=== PATIENT | female | born 1965 | race Caucasian/White ===

== ENCOUNTER 2021-10-23 23:43 | Inpatient (IN) | payer BC, SELFPAY ==
--- NOTE | ~2021-10-23 | XR_ITS ---
EXAMINATION: XR chest 1V portable DATE: 10/26/2021 07:32 INDICATION: Hypoxia. COVID-19 positive on 10/15/2021. TECHNIQUE: A single frontal view of the chest was obtained. COMPARISON: None. FINDINGS: There are patchy airspace opacities in all lung zones bilaterally. No pleural effusion or p neumothorax. The heart size is normal. IMPRESSION: 1. Diffuse lung disease, consistent with COVID-19 pneumonia. Reviewed, dictated and finalized at location [facility] [employer]
[2021-10-24] VITALS (11 sets, daily range): BP systolic 109–145; BP diastolic 61–76; PULSE 62–82; RESP 16–22; TEMP 36.1–36.8; O2SAT 91–98; BMI 38.6
--- NOTE | 2021-10-24 00:18 | PM.IMHP ---
H&P: HPI History of Present Illness Date/Time: 10/24/21 00:18 Chief Complaint: Dyspnea Narrative: 56-year-old woman with a history of seizures and hypothyroidism transferred from [facility] emergency department in [place] with dyspnea, fatigue, and weakness. She has had headache, body aches, ageusia, poor appetite and a cough as well. Her symptoms began on October 12 and she was tested on October 15 and found to be positive. Her symptoms got worse over last few days prompting her to go to the emergency department. She denies history of diabetes, heart or lung disease, fever, vomiting, diarrhea, and chest pain. Her 36-year-old daughter recently moved home and was also positive for COVID. She has not had the COVID vaccine. Patient states she has been having small seizures today. Review of Systems Review of Systems: All systems reviewed & are unremarkable except as noted in HPI and below Constitutional: Constitutional: Reports anorexia, Reports body ache(s), Reports fatigue, Reports headache(s), Reports lethargy and Reports weakness Eyes: Eyes: Denies change in vision, Denies diplopia, Denies loss of vision and Reports requires corrective lenses ENT: Denies otalgia, Denies facial pain, Denies nasal discharge and Denies sore throat Cardiovascular: Cardiovascular: Denies chest pain, Denies syncope and Denies leg edema Respiratory: Respiratory: Reports cough, Denies hemoptysis, Reports pain with cough and Reports dyspnea Gastrointestinal: Gastrointestinal: Reports abdominal pain, Denies melena, Denies hematochezia, Denies nausea and Denies vomiting Genitourinary: Genitourinary: Denies hematuria, Denies nocturia and Denies dysuria Musculoskeletal: Musculoskeletal: Reports myalgias, Denies arthralgias and Denies joint swelling Integumentary/Breasts: Skin/Breast: Denies pruritus, Denies erythema and Denies rash Neurologic: Denies abnormal gait, Denies dizziness, Denies syncope and Reports convulsions Psychiatric: Psychiatric: Reports change in appetite Hematologic/Lymphatic: Hematologic/Lymphatic: Denies easy bleeding and Denies easy bruising Allergic/Immunologic: Allergic/Immunologic: Denies urticaria, Denies throat swelling and Denies tongue swelling PMFSH Past Medical History Medical History (Updated 10/24/21 @ 01:10 by Salvador Waite MD) Epilepsy GERD (gastroesophageal reflux disease) Hypothyroidism Surgical History Surgical History (Updated 10/24/21 @ 00:32 by Salvador Waite MD) Status post cholecystectomy Status post right foot surgery Social History Social History (Updated 10/24/21 @ 00:33 by Salvador Waite MD) Smoking status: Never smoker Second hand tobacco smoke exposure: No Alcohol intake: never Substance use: never Living arrangements: with family Additional occupation/education comments: Works at a [employer] store. Spiritual care concerns: No Meds Home Medications and Allergies Allergies Allergy/AdvReac Type Severity Reaction Status Date / Time No Known Allergies Allergy Verified 10/24/21 01:10 Vital Signs Vital Signs - 24 hr 10/24/21 00:14 Temperature 36.2 C L Pulse Rate 69 Respiratory Rate 22 H Blood Pressure 145/70 H Pulse Oximetry 95 Exam Const: General: cooperative, well developed, alert, awake, Physically active, acute distress mild, anxious, ill appearing acutely ( Mildly) and well groomed Nutritional Appearance: overweight Orientation/consciousness: patient oriented x3 Limitations: no limitations HENMT: Head: normal to inspection, normocephalic and atraumatic Mouth: Yes dry mucous membranes ( no lesions) Throat: posterior oropharynx normal Eyes: General: appearance normal, both eyes and all related structures Eyelids: eyelids normal Conjunctivae: conjunctivae normal Cornea: corneas normal Pupils: Equal, round and reactive pupils present EOM: EOMs intact bilaterally Neck: Neck: normal visual inspection, full ROM
--- NOTE | 2021-10-24 00:31 | PC.NURSE ---
Bennie admitted to room 210 from [facility] per ambulance at 2330. Is alert and oriented times 4 with no c/o pain.
[2021-10-24] MEDS: SODIUM CHLORIDE 0.9% IV 1,000 ML 100 ML IV CONT ×4 (01:13→23:47)
[2021-10-24] MEDS: ONDANSETRON INJ 4 MG/2 ML VIAL IV PUSH ×3 (01:19→18:31)
[2021-10-24 05:26] LABS: Basophils Absolute Auto 0.01 K/mm3 (0.00-0.10); Basophils Percent Auto 0.2 % (0.0-1.0); Eosinophils Absolute Auto 0.01 K/mm3 (0.02-0.50); Eosinophils Percent Auto 0.2 % (1.0-6.0); Hematocrit 33.3 % (35.0-49.0); Hemoglobin 11.2 g/dL (12.0-15.0); Immature Granulocyte Absolute 0.02 K/mm3 (0.00-0.00); Immature Granulocyte Percent A 0.4 % (0.0-0.0); Lymphocytes Absolute Auto 0.89 K/mm3 (1.10-4.50); Lymphocytes Percent Auto 18.6 % (18.0-42.0); Mean Corpuscular HGB Conc 33.6 g/dL (32.0-36.0); Mean Corpuscular Hemoglobin 30.7 pg (27.0-31.0); Mean Corpuscular Volume 91.2 fL (78.0-102.0); Mean Platelet Volume 9.1 fl (9.2-11.8); Monocytes Absolute Auto 0.52 K/mm3 (0.10-0.90); Monocytes Percent Auto 10.9 % (2.0-11.0); Neutrophils Absolute Auto 3.3 K/mm3 (1.7-7.2); Neutrophils Percent Auto 69.7 % (50.0-70.0); Platelet Count Result 173 K/mm3 (150-420); Red Blood Count 3.65 M/mm3 (4.20-5.40); Red Cell Distribution Width 12.5 % (11.6-14.4); White Blood Count 4.8 K/mm3 (4.8-10.8)
[2021-10-24] MEDS: ACETAMINOPHEN 500 MG TABLET 1000 MG PO (05:30)
[2021-10-24 05:45] LABS: INR 1.1; Prothrombin Time 11.8 Seconds (9.50-12.10)
[2021-10-24 05:46] LABS: Alanine Aminotransferase 43 U/L (14-59); Albumin Level 2.5 g/dL (3.4-5.0); Alkaline Phosphatase 118 U/L (46-116); Anion Gap 9 mmol/L (8-16); Aspartate Amino Transferase 40 U/L (15-37); Bilirubin,Total 0.2 mg/dL (0.00-1.00); Blood Urea Nitrogen 8 mg/dL (7-18); Calcium 7.7 mg/dL (8.5-10.1); Carbon Dioxide 29 mmol/L (21-32); Chloride 105 mmol/L (98-108); Estimated CRCL calculation 88 ml/min; Estimated Glomerular Filt Rate > 60; Glucose 99 mg/dL (70-99); Magnesium 1.9 mg/dL (1.8-2.4); Osmolality Calculated 294 mOsm/kg (285-295); Potassium 3.7 mmol/L (3.5-5.1); Sodium 143 mmol/L (136-145); Total Protein 6.3 g/dL (6.4-8.2); Troponin I 5.3 ng/L (0.00-60.4)
--- NOTE | 2021-10-24 08:07 | PM.IMHP ---
H&P: HPI History of Present Illness Date/Time: 10/24/21 08:07 this is a Covid positive patient had arrived to emergency room from outside hospital. Patient has a past medical history of hypothyroidism and seizure. Patient is whiny and difficult to get any answers out of her. Patient notes that she takes her seizure medications at 515 when she did not see them at the correct time I explained to patient that she is now in the hospital her medications are being employed so that she can receive them. All medications obtained from medical records. According to notes this is a 56-year-old female that started to experience Covid symptoms on the 10/12/2021 and tested positive on 10/15/2021. At that time she was placed on inhalers and steroid. Patient has not been vaccinated for Covid or flu. Patient was started on remdesivir and dexamethasone at the outside hospital. Patient tested negative for PE indicated groundglass opacites. 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 Spiritual care concerns: No Meds Home Medications and Allergies Home Medications Medication Instructions Recorded Confirmed Type cyclobenzaprine 10 mg PO TID PRN 10/24/21 10/24/21 History diclofenac sodium [Voltaren] 75 mg PO BID 10/24/21 10/24/21 History gabapentin 300 mg PO HS 10/24/21 10/24/21 History levetiracetam [Keppra] 1,000 mg PO BID 10/24/21 10/24/21 History levothyroxine [Euthyrox] 137 mcg PO DAILY 10/24/21 10/24/21 History magnesium oxide 400 mg PO DAILY 10/24/21 10/24/21 History phenytoin sodium extended 200 mg PO BID 10/24/21 10/24/21 History [Dilantin Extended] tramadol 50 mg PO Q6H PRN 10/24/21 10/24/21 History tramadol-acetaminophen 10/24/21 History Allergies Allergy/AdvReac Type Severity Reaction Status Date / Time No Known Allergies Allergy Verified 10/24/21 01:10 Vital Signs Vital Signs - 24 hr 10/24/21 00:13 10/24/21 00:14 10/24/21 03:35 Temperature 97.1 F L 96.9 F L Pulse Rate 69 69 68 Respiratory Rate 20 22 H 20 Blood Pressure 145/70 H 124/70 Pulse Oximetry 95 95 97 H&P: Results Labs Labs: Short CBC 10/24/21 Range/Units 05:07 WBC 4.8 (4.8-10.8) K/mm3 Hgb 11.2 L (12.0-15.0) g/dL Hct 33.3 L (35.0-49.0) % Plt Count 173 (150-420) K/mm3 [facility] 10/24/21 05:07 Sodium 143 Potassium 3.7 Chloride 105 Carbon Dioxide 29 BUN 8 Creatinine 0.70 Glucose 99 Calcium 7.7 L Cardiac Enzymes 10/24/21 Range/Units 05:07 Troponin I 5.3 (0.00-60.4) ng/L Liver Function 10/24/21 Range/Units 05:07 Total Bilirubin 0.2 (0.00-1.00) mg/dL AST 40 H (15-37) U/L ALT 43 (14-59) U/L Alkaline Phosphatase 118 H (46-116) U/L Albumin 2.5 L (3.4-5.0) g/dL
--- NOTE | 2021-10-24 08:15 | WPDPN ---
Progress Note: A&P Assessment and Plan (1) Respiratory failure with hypoxia: Code(s): J96.91 - Respiratory failure, unspecified with hypoxia Status: Acute Assessment and Plan: 2.5-3 L/M by nasal cannula required at present. Minimal increased work breathing. Candidate for antiviral and anti-inflammatory therapy. Started remdesivir along with dexamethasone, Tessalon Perles guaifenesin and inhaler (2) Pneumonia due to COVID-19 virus: Code(s): U07.1 - COVID-19; J12.82 - Pneumonia due to coronavirus disease 2018 Status: Acute Assessment and Plan: Remdesivir and dexamethasone per protocol. Will monitor transaminases. Mild increase in AST likely due to AZUL. (3) Epilepsy: Code(s): G40.909 - Epilepsy, unspecified, not intractable, without status epilepticus Status: Acute Assessment and Plan: Continue current anti epileptics. (4) GERD (gastroesophageal reflux disease): Code(s): K21.9 - Gastro-esophageal reflux disease without esophagitis Status: Acute Assessment and Plan: Continue oral PPI. (5) Hypothyroidism: Code(s): E03.9 - Hypothyroidism, unspecified Status: Acute Assessment and Plan: Continue oral thyroxine. Subjective Date/time seen: 10/24/21 08:15this is a Covid positive patient had arrived to emergency room from outside hospital. Patient has a past medical history of hypothyroidism and seizure. Patient is whiny and difficult to get any answers out of her. Patient notes that she takes her seizure medications at 515 when she did not see them at the correct time I explained to patient that she is now in the hospital her medications are being employed so that she can receive them. All medications obtained from medical records. According to notes this is a 56-year-old female that started to experience Covid symptoms on the 10/12/2021 and tested positive on 10/15/2021. At that time she was placed on inhalers and steroid. Patient has not been vaccinated for Covid or flu. Patient was started on remdesivir and dexamethasone at the outside hospital. Patient imaging negative for PE indicated groundglass opacites consistent with Covid. Patient was diagnosed with respiratory failure secondary to Covid. EKG from the outside hospital sinus rhythm with a heart rate of 69, phenytoin 22.3, WBC 6.6, hemoglobin 11.8, hematocrit 37.3, platelets 208, lactic acid 1.0, glucose 138, sodium 144, potassium 4.4, BUN 7, creatinine 0.8, AST 47, ALT 48, D-dimer 1527. Review of Systems Review of Systems: ROS unobtainable: Yes unobtainable due to medical condition Exam Narrative: GENERAL: Whiny difficult to get answers from, in no apparent distress. HEAD: normocephalic, atraumatic. EYES: PERRL. Sclera clear/white. Vision is grossly intact. EARS: External ears normal, auditory canals clear and without drainage, TMs normal without perforation. Hearing grossly intact. NOSE: External nose normal with no obvious nasal discharge, nares without redness, no rhinorrhea. THROAT: Mucous membranes moist, posterior pharynx clear. NECK: Neck supple, non-tender without lymphadenopathy, masses or thyromegaly. CARDIOVASCULAR: Regular rate and rhythm without murmurs, gallops, or rubs. RESPIRATORY: Clear to auscultation. Breath sounds equal bilaterally. No wheezes, rales, or rhonchi. GASTROINTESTINAL: Abdomen soft, non-tender, nondistended. Bowel sounds are active. No hepato-splenomegaly, or palpable masses. No guarding. SKIN: warm, intact with no suspicious lesions or rash, good texture and turgor. NEURO: awake, alert, EXTREMITIES: Normal range of motion. No edema. No calf tenderness. Negative Homans sign bilaterally. BACK: Nontender without deformity or crepitance. No flank tenderness. Objective Data Vital Signs Vital Signs: Vital Signs - 24 hr 10/24/21 00:13 10/24/21 00:14 10/24/21 03:35 Temperature 97.1 F L 96.9 F L Pulse Rate 69 69 68 Respiratory Rate 20 22 H 20 Bl
[2021-10-24] MEDS: PANTOPRAZOLE SODIUM IV 40 MG VIAL IV PUSH (09:48)
[2021-10-24] MEDS: PHENYTOIN SODIUM 100 MG EXTENDED RELEASE CAP 200 MG PO ×2 (09:48→16:56)
[2021-10-24] MEDS: levETIRAcetam 500 MG TABLET 1000 MG PO ×2 (09:48→16:57)
[2021-10-24] MEDS: MAGNESIUM OXIDE 400 MG TABLET PO (09:48)
[2021-10-24] MEDS: BENZONATATE 100 MG CAPSULE 200 MG PO ×3 (09:49→16:57)
[2021-10-24] MEDS: LEVOTHYROXINE SODIUM 112 MCG, LEVOTHYROXINE SODIUM 25 MCG 137 MCG PO (09:49)
[2021-10-24] MEDS: DICLOFENAC SOD 75 MG TABLET.EC PO ×2 (09:50→16:56)
[2021-10-24] MEDS: DEXAMETHASONE SOD PHOS INJ 4 MG/ML VIAL 6 MG IV PUSH (09:50)
[2021-10-24] MEDS: guaiFENesin 12 HR 600 MG TABCR 1200 MG PO ×2 (09:50→20:59)
[2021-10-24] MEDS: ENOXAPARIN 30 MG/0.3 ML SYRINGE SUB-Q ×2 (09:52→20:58)
[2021-10-24] MEDS: ALBUTEROL SULFATE (*SP) INHALER 2 PUFF INHALATION ×3 (10:35→19:58)
[2021-10-24] MEDS: REMDESIVIR 100 MG/NS 250 ML 100 MG/250 ML BAG 250 MG IVPB (12:35)
--- NOTE | 2021-10-24 13:50 | PC.NURSE ---
IV fluids were delayed do to IV site clotting. 3 attempts made to start IV' site is RW 22G Remdisavir given 1st then NS started.
[2021-10-24] MEDS: ACETAMINOPHEN 325 MG TABLET 650 MG PO (16:57)
[2021-10-24] MEDS: BUDESONIDE/FORMOTEROL (*SP) 160-4.5 MCG 6 GM INH 2 PUFF INHALATION (18:30)
[2021-10-24] MEDS: GABAPENTIN 300 MG CAPSULE PO (20:59)
[2021-10-25] VITALS (7 sets, daily range): BP systolic 98–123; BP diastolic 55–66; PULSE 62–88; RESP 14–20; TEMP 36–36.8; O2SAT 95–98
--- NOTE | 2021-10-25 00:05 | PC.NURSE ---
Patient's SpO2 @ 95% on O2 @ 0.5 lpm. O2 turned off. Patient instructed to call nurse if feels SOB or like she needs the O2 back on. Call light in reach.
--- NOTE | 2021-10-25 01:20 | PC.NURSE ---
Patient resting in bed, complaining of coughing a lot and saying the coughing is hurting her upper stomach, lower rib cage area. Patient requesting something for the cough and some Tylenol for the pain. Charge nurse notified. Patient's SpO2 is @ 91% on room air. Call light in reach.
--- NOTE | 2021-10-25 01:23 | PC.NURSE ---
Dr. Torres notified of pt's c/o chronic coughing; New orders received and noted.
[2021-10-25] MEDS: ACETAMINOPHEN 325 MG TABLET 650 MG PO (01:38)
[2021-10-25] MEDS: BENZONATATE 100 MG CAPSULE 200 MG PO ×4 (01:39→17:14)
--- NOTE | 2021-10-25 01:54 | PC.NURSE ---
Patient ambulated to/from bathroom with SBA with steady gait. Patient SOB when she got back to the bed. SpO2 88%. Patient instructed on pursed lip breathing. SpO2 only came up to 89%. O2 began again @ 0.5 lpm/nc. SpO2 increased to 93%. PRN Tylenol and Tesslon Perles given as requested. Patient sitting on side of bed with call light in reach.
[2021-10-25] MEDS: BUDESONIDE/FORMOTEROL (*SP) 160-4.5 MCG 6 GM INH 2 PUFF INHALATION ×2 (05:29→17:15)
[2021-10-25] MEDS: LEVOTHYROXINE SODIUM 112 MCG, LEVOTHYROXINE SODIUM 25 MCG 137 MCG PO (05:30)
[2021-10-25] MEDS: ALBUTEROL SULFATE (*SP) INHALER 2 PUFF INHALATION ×4 (05:30→20:19)
[2021-10-25 06:00] LABS: Alanine Aminotransferase 46 U/L (14-59); Estimated CRCL calculation 82 ml/min; Estimated Glomerular Filt Rate > 60; INR 1.2; Prothrombin Time 12.3 Seconds (9.50-12.10)
--- NOTE | 2021-10-25 06:53 | PC.NURSE ---
Patient called nurses to her room saying she's having a seizure. 2 nurses entered room to find patient lying on her bed. No seizure activity noted. NURY. Hand grasps and BLE strength equal. Patient talking the whole time. Patient says her head feels fuzzy and things sound funny and then her head pulls back. Patient's respirations rapid and shallow. Nurse educated patient on pursed lip breathing and respirations slowed. Patient continued to say she was having a seizure while no seizure activity noted. Dr Torres notified of all with new order received for Dilantin level.
[2021-10-25 07:04] LABS: Phenytoin Dilantin 17 ug/mL (10-20)
[2021-10-25] MEDS: ONDANSETRON INJ 4 MG/2 ML VIAL IV PUSH (07:54)
[2021-10-25] MEDS: guaiFENesin 12 HR 600 MG TABCR 1200 MG PO ×2 (08:45→20:20)
[2021-10-25] MEDS: DEXAMETHASONE SOD PHOS INJ 4 MG/ML VIAL 6 MG IV PUSH (08:45)
[2021-10-25] MEDS: PHENYTOIN SODIUM 100 MG EXTENDED RELEASE CAP 200 MG PO ×2 (08:46→17:14)
[2021-10-25] MEDS: MAGNESIUM OXIDE 400 MG TABLET PO (08:46)
[2021-10-25] MEDS: levETIRAcetam 500 MG TABLET 1000 MG PO ×2 (08:46→17:14)
[2021-10-25] MEDS: ENOXAPARIN 30 MG/0.3 ML SYRINGE SUB-Q ×2 (08:47→20:20)
[2021-10-25] MEDS: DICLOFENAC SOD 75 MG TABLET.EC PO ×2 (08:47→17:14)
[2021-10-25] MEDS: PANTOPRAZOLE SODIUM IV 40 MG VIAL IV PUSH (08:48)
[2021-10-25] MEDS: REMDESIVIR 100 MG/NS 250 ML 100 MG/250 ML BAG 250 MG IVPB (09:37)
[2021-10-25] MEDS: SODIUM CHLORIDE 0.9% IV 1,000 ML 100 ML IV CONT (11:13)
--- NOTE | 2021-10-25 11:36 | WPDPN ---
Progress Note: A&P Assessment and Plan (1) Respiratory failure with hypoxia: Code(s): J96.91 - Respiratory failure, unspecified with hypoxia <JENNIFER Castaneda - Last Filed: 10/25/21 11:42> Status: Acute <JENNIFER Castaneda - Last Filed: 10/25/21 11:42> Assessment and Plan: 2.5-3 L/M by nasal cannula required at present. Minimal increased work breathing. Candidate for antiviral and anti-inflammatory therapy. Started remdesivir along with dexamethasone, Tessalon Perles guaifenesin and inhaler Patient will have a home O2 evaluation and repeat chest x-ray on discharge tomorrow <JENNIFER Castaneda - Last Filed: 10/25/21 11:42> (2) Pneumonia due to COVID-19 virus: Code(s): U07.1 - COVID-19; J12.82 - Pneumonia due to coronavirus disease 2019 <JENNIFER Casatneda - Last Filed: 10/25/21 11:42> Status: Acute <JENNIFER Castaneda - Last Filed: 10/25/21 11:42> Assessment and Plan: Remdesivir and dexamethasone per protocol. Will monitor transaminases. Mild increase in AST likely due to AZUL. <JENNIFER Castaneda - Last Filed: 10/25/21 11:42> (3) Epilepsy: Code(s): G40.909 - Epilepsy, unspecified, not intractable, without status epilepticus <JENNIFER Castaneda - Last Filed: 10/25/21 11:42> Status: Acute <JENNIFER Castaneda - Last Filed: 10/25/21 11:42> Assessment and Plan: Continue current anti epileptics. phenytoin 17 <JENNIFER Castaneda - Last Filed: 10/25/21 11:42> (4) GERD (gastroesophageal reflux disease): Code(s): K21.9 - Gastro-esophageal reflux disease without esophagitis <JENNIFER Castaneda - Last Filed: 10/25/21 11:42> Status: Acute <JENNIFER Castaneda - Last Filed: 10/25/21 11:42> Assessment and Plan: Continue oral PPI. <JENNIFER Castaneda - Last Filed: 10/25/21 11:42> (5) Hypothyroidism: Code(s): E03.9 - Hypothyroidism, unspecified <JENNIFER Castaneda - Last Filed: 10/25/21 11:42> Status: Acute <JENNIFER Castaneda - Last Filed: 10/25/21 11:42> Assessment and Plan: Continue oral thyroxine. <JENNIFER Castaneda - Last Filed: 10/25/21 11:42> Subjective Date/time seen: 10/25/21 11:36 <JENNIFER Castaneda - Last Filed: 10/25/21 11:42> Review of Systems Review of Systems: ROS unobtainable: Yes unobtainable due to medical condition <JENNIFER Castaneda - Last Filed: 10/25/21 11:42> Exam Narrative: GENERAL: Whiny difficult to get answers from, in no apparent distress. HEAD: normocephalic, atraumatic. EYES: PERRL. Sclera clear/white. Vision is grossly intact. EARS: External ears normal, auditory canals clear and without drainage, TMs normal without perforation. Hearing grossly intact. NOSE: External nose normal with no obvious nasal discharge, nares without redness, no rhinorrhea. THROAT: Mucous membranes moist, posterior pharynx clear. NECK: Neck supple, non-tender without lymphadenopathy, masses or thyromegaly. CARDIOVASCULAR: Regular rate and rhythm without murmurs, gallops, or rubs. RESPIRATORY: Clear to auscultation. Breath sounds equal bilaterally. No wheezes, rales, or rhonchi. GASTROINTESTINAL: Abdomen soft, non-tender, nondistended. Bowel sounds are active. No hepato-splenomegaly, or palpable masses. No guarding. SKIN: warm, intact with no suspicious lesions or rash, good texture and turgor. NEURO: awake, alert, EXTREMITIES: Normal range of motion. No edema. No calf tenderness. Negative Homans sign bilaterally. BACK: Nontender without deformity or crepitance. No flank tenderness. <Ramesh Guido, [employer] - Last Filed: 10/25/21 11:42> Objective Data Vital Signs Vital Signs: Vital Signs - 24 hr 10/24/21 12:00 10/24/21 15:45 10/24/21 16:35 Temperature 98.2 F 97.7 F Pulse Rate 64 80 82 Respiratory Rate 16 18 Blood Pressure 1
[2021-10-25] MEDS: GABAPENTIN 300 MG CAPSULE PO (20:20)
[2021-10-26] VITALS (7 sets, daily range): BP systolic 109–126; BP diastolic 64–74; PULSE 65–102; RESP 18–20; TEMP 36.2–36.5; O2SAT 85–95
[2021-10-26] MEDS: ACETAMINOPHEN 325 MG TABLET 650 MG PO (04:14)
[2021-10-26] MEDS: LEVOTHYROXINE SODIUM 112 MCG, LEVOTHYROXINE SODIUM 25 MCG 137 MCG PO (05:37)
[2021-10-26] MEDS: traMADol HCL (*CRX) 25 MG TABLET PO (05:40)
[2021-10-26] MEDS: ALBUTEROL SULFATE (*SP) INHALER 2 PUFF INHALATION ×2 (05:43→09:59)
[2021-10-26] MEDS: BUDESONIDE/FORMOTEROL (*SP) 160-4.5 MCG 6 GM INH 2 PUFF INHALATION (05:43)
[2021-10-26 07:03] LABS: Hematocrit 32.3 % (35.0-49.0); Mean Corpuscular HGB Conc 34.1 g/dL (32.0-36.0); Mean Corpuscular Hemoglobin 31.4 pg (27.0-31.0); Mean Corpuscular Volume 92.3 fL (78.0-102.0); Mean Platelet Volume 9.6 fl (9.2-11.8); Platelet Count Result 129 K/mm3 (150-420); Red Cell Distribution Width 12.4 % (11.6-14.4); White Blood Count 7.1 K/mm3 (4.8-10.8)
[2021-10-26 07:24] LABS: INR 1.1; Prothrombin Time 11.8 Seconds (9.50-12.10)
[2021-10-26] MEDS: PHENYTOIN SODIUM 100 MG EXTENDED RELEASE CAP 200 MG PO (07:45)
[2021-10-26] MEDS: PANTOPRAZOLE SODIUM IV 40 MG VIAL IV PUSH (07:45)
[2021-10-26] MEDS: DEXAMETHASONE SOD PHOS INJ 4 MG/ML VIAL 6 MG IV PUSH (07:45)
[2021-10-26] MEDS: MAGNESIUM OXIDE 400 MG TABLET PO (07:45)
[2021-10-26] MEDS: guaiFENesin 12 HR 600 MG TABCR 1200 MG PO (07:46)
[2021-10-26] MEDS: DICLOFENAC SOD 75 MG TABLET.EC PO (07:46)
[2021-10-26] MEDS: levETIRAcetam 500 MG TABLET 1000 MG PO (07:46)
[2021-10-26] MEDS: ENOXAPARIN 30 MG/0.3 ML SYRINGE SUB-Q (07:47)
[2021-10-26] MEDS: BENZONATATE 100 MG CAPSULE 200 MG PO (07:47)
[2021-10-26 07:55] LABS: Alanine Aminotransferase 38 U/L (14-59); Albumin Level 2.6 g/dL (3.4-5.0); Alkaline Phosphatase 108 U/L (46-116); Anion Gap 9 mmol/L (8-16); Aspartate Amino Transferase 32 U/L (15-37); Bilirubin,Total 0.3 mg/dL (0.00-1.00); Blood Urea Nitrogen 6 mg/dL (7-18); Calcium 7.8 mg/dL (8.5-10.1); Carbon Dioxide 28 mmol/L (21-32); Chloride 107 mmol/L (98-108); Estimated CRCL calculation 97 ml/min; Estimated Glomerular Filt Rate > 60; Glucose 115 mg/dL (70-99); Osmolality Calculated 296 mOsm/kg (285-295); Potassium 3.1 mmol/L (3.5-5.1); Sodium 144 mmol/L (136-145); Total Protein 5.9 g/dL (6.4-8.2)
[2021-10-26] MEDS: LORazepam INJ (*CRX) 2 MG/ML VIAL 0.5 MG IV PUSH (08:10)
[2021-10-26] MEDS: REMDESIVIR 100 MG/NS 250 ML 100 MG/250 ML BAG 250 MG IVPB (08:58)
--- NOTE | 2021-10-26 09:08 | HOMEO2EVAL ---
[place] [facility] [place]: Home Oxygen (O2) Evaluation Start: 10/26/21 08:00 Freq: ONCE Status: Active Protocol: RPE Activity Type Activity Date Activity User E-Sign Co-Sign Detail Recorded Client Recorded Date Recorded By Document 10/26/21 08:40 SJB [id number] 10/26/21 09:08 SJB Document 10/26/21 08:45 SJB [id number] 10/26/21 09:08 SJB Document 10/26/21 08:53 SJB [id number] 10/26/21 09:08 SJB 10/26/21 10/26/21 10/26/21 08:40 08:45 08:53 Home O2 Evaluation Test Phase Resting Exercise Exercise Oxygen Delivery Room Air Room Air Nasal Cannula Oxygen Flow Rate (L/min) 1 Pulse Oximetry (90-100 %) 94 85 L 91 Pulse Rate (60-100 beats/min) 80 102 H 96 Activity Tolerance Fair Good Rating of Perceived Dyspnea (PD) +1 Mild, +2 Mild, Some Noticeable to Difficulty, the Participant Noticeable to but Not to an the Observer Observer Rate of Perceived Exertion (PE) 12 13 Somewhat Hard Ambulation Distance (feet) 175 175 Home Oxygen Evaluation Comments WILL START EVAL WILL START 02 FINISHED WALK WALK NOW. AT 1 LPM ON 1 LPM. LIDYA FAIRLY WELL. Treatment Charges O2 Evaluation - Inpatient
[2021-10-26] MEDS: POTASSIUM CHLORIDE 20 MEQ TABLET 40 MEQ PO (09:55)
--- NOTE | 2021-10-26 11:25 | PM.DS ---
DS: Admitting Diagnosis Discharge Date 10/26/2021 Admitting Diagnosis covid DS: Discharge Diagnosis Discharge Diagnosis (1) Respiratory failure with hypoxia: Code(s): J96.91 - Respiratory failure, unspecified with hypoxia Status: Acute Assessment and Plan: 2.5-3 L/M by nasal cannula required at present. Minimal increased work breathing. Candidate for antiviral and anti-inflammatory therapy. Started remdesivir along with dexamethasone, Tessalon Perles guaifenesin and inhaler Patient will have a home O2 evaluation and repeat chest x-ray on discharge tomorrow Discharge Patient requires oxygen at 1 L with activity she will also discharged home with dexamethasone x7 days and inhaler Tessalon Perles and guaifenesin (2) Pneumonia due to COVID-19 virus: Code(s): U07.1 - COVID-19; J12.82 - Pneumonia due to coronavirus disease 2018 Status: Acute Assessment and Plan: Remdesivir and dexamethasone per protocol. Will monitor transaminases. Mild increase in AST likely due to AZUL. (3) Epilepsy: Code(s): G40.909 - Epilepsy, unspecified, not intractable, without status epilepticus Status: Acute Assessment and Plan: Continue current anti epileptics. phenytoin 17 (4) GERD (gastroesophageal reflux disease): Code(s): K21.9 - Gastro-esophageal reflux disease without esophagitis Status: Acute Assessment and Plan: Continue oral PPI. (5) Hypothyroidism: Code(s): E03.9 - Hypothyroidism, unspecified Status: Acute Assessment and Plan: Continue oral thyroxine. DS: Summary Hospital Course [facility] Course: 56-year-old woman with a history of seizures and hypothyroidism transferred from [facility] emergency department in [place] with dyspnea, fatigue, and weakness. She has had headache, body aches, ageusia, poor appetite and a cough as well. Her symptoms began on October 12 and she was tested on October 15 and found to be positive. Her symptoms got worse over the last few days prompting her to go to the emergency department. Patient treatment plan here included dexamethasone along with remdesivir and nebulizer treatment. Home oxygen evaluation completed it was determined that patient requires oxygen with activities at 1 L. Oxygen order for home patient educated will follow up with primary care physician. She does complain of occasional shortness of breath with activity. The patient denies , CP, palpitation, extremity numbness, lightheadedness, dizziness, constipation, diarrhea, chills, or fever. Time Spent with Patient Time attestation: Total time spent providing and/or coordinating discharge services: Extreme and Exam Narrative: GENERAL: Normal behavior, in no apparent distress. HEAD: normocephalic, atraumatic. EYES: PERRL. Sclera clear/white. Vision is grossly intact. EARS: External ears normal, auditory canals clear and without drainage, TMs normal without perforation. Hearing grossly intact. NOSE: External nose normal with no obvious nasal discharge, nares without redness, no rhinorrhea. THROAT: Mucous membranes moist, posterior pharynx clear. NECK: Neck supple, non-tender without lymphadenopathy, masses or thyromegaly. CARDIOVASCULAR: Regular rate and rhythm without murmurs, gallops, or rubs. RESPIRATORY: Clear to auscultation. Breath sounds equal bilaterally. No wheezes, rales, or rhonchi. GASTROINTESTINAL: Abdomen soft, non-tender, nondistended. Bowel sounds are active. No hepato-splenomegaly, or palpable masses. No guarding. SKIN: warm, intact with no suspicious lesions or rash, good texture and turgor. NEURO: awake, alert, x4 EXTREMITIES: Normal range of motion. No edema. No calf tenderness. Negative Homans sign bilaterally. BACK: Nontender without deformity or crepitance. No flank tenderness. DS: Data Data Completed and Pending Labs on day of discharge: Labs from last 24 hours 10/08
--- NOTE | 2021-10-26 13:36 | PC.NURSE ---
Discharge instructions reviewed with patient. [facility] delivered portable O2 tank. Patient taken from floor per wheelchair.
--- NOTE | 2021-10-27 13:53 | PC.NURSE ---
Pt states she received and understood her discharge instructions. Lab results and CXR explained to patient per her request.
== END 2021-10-26 13:15 | disposition home or self-care (01) | DRG 177 ==
PROVIDERS: Internal Medicine Critical Care Medicine; Nurse Practitioner; Admitting Provider Emergency Medicine; PCP Nurse Practitioner Family; Visit Provider Emergency Medicine
DX: U07.1 COVID-19 (principal); J96.91 Respiratory failure, unspecified with hypoxia; J12.82 Pneumonia due to coronavirus disease 2019; G40.909 Epilepsy, unspecified, not intractable, without status epilepticus; E03.9 Hypothyroidism, unspecified; K21.9 Gastro-esophageal reflux disease without esophagitis; Z90.49 Acquired absence of other specified parts of digestive tract
CPT/HCPCS: 36415; 71045; 80053; 80185; 82565; 83036; 83735; 84460; 84484; 85025; 85027; 85610; 94618; A9270; C9113; J1100; J1650; J2060; J2405; J7030